=== PATIENT | male | born 1960 | race African-American/Black ===

== ENCOUNTER → 2016-12-08 | Outpatient (REF) | payer BC ==
[2016-12-08 12:24] LABS: MEAN CORPUSCULAR HEMOGLOBIN 32.7 pg (27.0-33.0); MEAN CORPUSCULAR HGB CONC 32.9 g/dl (32.0-36.5); MEAN CORPUSCULAR VOLUME 99.3 fl (80.0-96.0); RED CELL DISTRIBUTION WIDTH 11.8 % (11.5-14.5); WHITE BLOOD COUNT 4.5 K/mm3 (4.0-10.0)
[2016-12-08 13:07] LABS: ALBUMIN 3.5 GM/DL (3.2-5.2); ALBUMIN/GLOBULIN RATIO 1.21 (1.00-1.93); ALKALINE PHOSPHATASE 62 U/L (45-117); ALT/SGPT 22 U/L (12-78); ANION GAP 7 MEQ/L (8-16); AST/SGOT 10 U/L (15-37); BILIRUBIN,TOTAL 0.5 MG/DL (0.2-1.0); BLOOD UREA NITROGEN 13 MG/DL (7-18); CALCIUM LEVEL 8.4 MG/DL (8.5-10.1); CARBON DIOXIDE LEVEL 28 MEQ/L (21-32); CHLORIDE LEVEL 106 MEQ/L (98-107); CHOLESTEROL LEVEL 111 MG/DL (<200); CREATININE FOR GFR 0.96 MG/DL (0.70-1.30); GLOMERULAR FILTRATION RATE > 60.0 (>56); GLUCOSE, FASTING 84 MG/DL (70-105); POTASSIUM SERUM 4.6 MEQ/L (3.5-5.1); SODIUM LEVEL 141 MEQ/L (136-145); TOTAL PROTEIN 6.4 GM/DL (6.4-8.2); TRIGLYCERIDES LEVEL 55 MG/DL (<150)
== END ==
LOC: M SFHCPLAZ 10:28
PROVIDERS: ATTEND Nurse Practitioner Adult Health
DX: Z00.00 Encounter for general adult medical examination without abnormal findings (principal); Z83.3 Family history of diabetes mellitus; I42.8 Other cardiomyopathies; Z12.5 Encounter for screening for malignant neoplasm of prostate
CPT/HCPCS: 36415; 80053; 80061; 83036; 84439; 84443; 85027; G0103

== ENCOUNTER → 2017-01-19 | Outpatient (CLI) | payer BC ==
[~2017-01-19] MED LIST: METHACHOLINE KIT (J7674) INH ONE
--- NOTE | 2017-01-19 09:43 | PFTRPT ---
Tech: Agustina CARREON RRT Age: 56 Sex: Male Race: Black Height: 63.00 Inches Weight: 163.00 Lbs BSA: 1.77 Diagnosis: Z72.0 PULMONARY FUNCTION REPORT ORDERING PROVIDER: OMID Ribera DATE OF SERVICE: 01/19/17 SPIROMETRY: Excellent technical quality. The forced vital capacity is normal. The FEV1 is in proportion. The obstructive index is, therefore, normal. FLOW VOLUME LOOP: The expiratory limb of the flow volume loop is normal. LUNG VOLUMES: The total lung capacity is normal. The residual volume is in proportion. DIFFUSION CAPACITY: The diffusion capacity is mildly reduced, but does not completely correct for alveolar volume. HEMOGLOBIN: No hemoglobin is available for correction. AIRWAY MECHANICS: Airways resistance and conductance are normal. IMPRESSION: Mild diffusion capacity impairment; requires clinical correlation. MTDD
--- NOTE | 2017-01-19 10:25 | PFTRPT ---
Tech: Agustina CARREON RRT Age: 56 Sex: Male Race: Black Height: 63.00 Inches Weight: 163.00 Lbs BSA: 1.77 Diagnosis: Z72.0 METHACHOLINE CHALLENGE REPORT ORDERING PROVIDER: OMID Ribera DATING OF SERVICE: 01/19/17 INTERPRETATION: The study was of excellent technical quality. Under protocol, methacholine was administered. Even after a total of 25 mg (188.875 CDUs), no significant reduction in the FEV1 was noted. IMPRESSION: Negative methacholine challenge study. MTDD
== END ==
LOC: M CARPUL 08:53
PROVIDERS: ATTEND Nurse Practitioner Adult Health
DX: Z72.0 Tobacco use (principal)
CPT/HCPCS: 94010; J7674

== ENCOUNTER → 2017-05-20 | Outpatient (REF) | payer BC ==
[2017-05-20 12:14] LABS: COLLAGEN EPINEPHRINE 138 SECONDS (74-162)
== END ==
LOC: M LABDRAWP 11:46
DX: H00.19 Chalazion unspecified eye, unspecified eyelid (principal)
CPT/HCPCS: 85576

== ENCOUNTER → 2018-01-26 | Outpatient (REF) | payer BC ==
[2018-01-26 17:58] LABS: ALBUMIN 3.4 GM/DL (3.2-5.2); ALBUMIN/GLOBULIN RATIO 1.26 (1.00-1.93); ALKALINE PHOSPHATASE 68 U/L (45-117); ALT/SGPT 22 U/L (12-78); ANION GAP 6 MEQ/L (8-16); AST/SGOT 10 U/L (7-37); BILIRUBIN,TOTAL 0.3 MG/DL (0.2-1.0); BLOOD UREA NITROGEN 12 MG/DL (7-18); CALCIUM LEVEL 8.7 MG/DL (8.5-10.1); CARBON DIOXIDE LEVEL 29 MEQ/L (21-32); CHLORIDE LEVEL 105 MEQ/L (98-107); CHOLESTEROL LEVEL 116 MG/DL (<200); CHOLESTEROL RISK RATIO 1.841 (<5); CREATININE FOR GFR 0.79 MG/DL (0.70-1.30); GLOMERULAR FILTRATION RATE > 60.0 (>56); GLUCOSE, FASTING 76 MG/DL (70-100); HDL CHOLESTEROL 63 MG/DL (>40); LDL CHOLESTEROL 1 MG/DL (<100); MAGNESIUM LEVEL 2.2 MG/DL (1.8-2.4); NON-HDL-C 53 MG/DL; POTASSIUM SERUM 4.6 MEQ/L (3.5-5.1); PSA SCREENING 5.16 NG/ML (< 4.0); SODIUM LEVEL 140 MEQ/L (136-145); TOTAL PROTEIN 6.1 GM/DL (6.4-8.2); TRIGLYCERIDES LEVEL 259 MG/DL (<150)
== END ==
LOC: M SFHCPLAZ 15:42
DX: Z00.00 Encounter for general adult medical examination without abnormal findings (principal); I10 Essential (primary) hypertension; Z12.5 Encounter for screening for malignant neoplasm of prostate; I42.8 Other cardiomyopathies
CPT/HCPCS: 83735